=== PATIENT | male | born 1995 | race Caucasian/White ===

== ENCOUNTER → 2018-09-17 | Outpatient (CLI) | payer BC ==
--- NOTE | 2018-09-17 15:29 | RADIOLOGY REPORT (SQ) ---
EXAM DESCRIPTION: FOOT RIGHT COMPLETE COMPLETED DATE/TIME: 09/17/2018 2:54 pm REASON FOR STUDY: INJURY OF TOE ON R FOOT S99.921A UNSPECIFIED INJURY OF RIGHT FOOT, INITIAL ENCOUN TER COMPARISON: None. NUMBER OF VIEWS: Three views. TECHNIQUE: AP, lateral and oblique radiographic images acquired of the right foot. LIMITATIONS: None. FINDINGS: MINERALIZATION: Normal. BONES: Nondisplaced fracture of the proximal 5th phalanx, distal shaft. JOINTS: No effusions. SOFT TISSUES: No foreign body. OTHER: No other significant finding. IMPRESSION: Nondisplaced fracture proximal 5th phalanx. TECHNICAL DOCUMENTATION: JOB ID: [id number] [employer] 14A- All Rights Reserved Reading location - IP/workstation name: [employer]OP[email or web address]
== END ==
LOC: RAD 14:31
PROVIDERS: ATTEND Family Medicine
DX: S92.514A Nondisplaced fracture of proximal phalanx of right lesser toe(s), initial encounter for closed fracture (principal); X58.XXXA Exposure to other specified factors, initial encounter